=== PATIENT | male | born 1985 | race Two or more races ===

== ENCOUNTER 2024-04-28 20:18 | Outpatient (CLI) | payer OTHER ==
[2024-04-28 21:42] VITALS: BP 119/68; PULSE 118; RESP 16; TEMP 98.3; O2SAT 97
[2024-04-29 08:14] VITALS: BP 123/80; PULSE 100; RESP 18; TEMP 98.1; O2SAT 99
== END 2024-04-29 09:25 | disposition home or self-care (01) ==
LOC: CSU 20:18 → EDSTATUS 05-04 13:34
PROVIDERS: ATTEND Psychiatry & Neurology Psychiatry
DX: F20.9 Schizophrenia, unspecified (principal)
CPT/HCPCS: 90839; 90840